=== PATIENT | female | born 1965 | race Caucasian/White ===

== ENCOUNTER 2018-01-01 16:35 | Emergency (ER) | payer OTHER, SELFPAY ==
[2018-01-01] VITALS (7 sets, daily range): BP systolic 122–153; BP diastolic 52–101; PULSE 79–87; RESP 17–25; TEMP 36.6; O2SAT 96–100; BMI 36.8
--- NOTE | 2018-01-01 16:39 | NURSING ---
NO OLD EKGS
--- NOTE | 2018-01-01 16:43 | NURSING ---
NO LW OR POA
[2018-01-01 16:45] LABS: Bedside Glucose 89 mg/dL (70-110)
--- NOTE | 2018-01-01 17:00 | CT_ITS ---
CTA of the neck INDICATION: Facial drooping TECHNIQUE: CTA of the neck was performed scanning in a dynamically enhanced fashion in the axial plane from the base of skull through the pulmonary apices followed by sagittal and coronal reconstructions. Radiographic technique was optimized to limit patient radiation dose FINDINGS: There is no significant soft or calcific plaque within the common carotids, carotid bulbs or origin of internal carotids. The right vertebral is dominant. Left vertebral is hypoplastic terminating in a PICA which is normal developmental variant. CT/CTA Neck W/WO Contrast IMPRESSION: No significant atherosclerotic disease. Electronically Signed: Marin Arechiga MD at 19:14 EDT , Service support ,
--- NOTE | 2018-01-01 17:00 | CT_ITS ---
STUDY: CTA OF THE BRAIN REASON FOR EXAM: Female, 52 years old. Left facial numbness RADIATION DOSAGE (If Supplied By Facility): CTDIvol = ( 26.63 ) mGy, DLP = ( 1469.83 ) mGycm TECHNIQUE: CT angiography was performed with a multi-detector CT scanner. Data acquisition was obtained from the skull base through the vertex following intravenous administration of ml of . MIP images were reconstructed from the axial data set. Post-processing of the angiographic images was performed, with multiplanar reformation and 3D reconstruction. Individualized dose optimization techniques were used for this CT. COMPARISON: None. FINDINGS: Normal bilateral petrous carotid arteries. Normal right cavernous carotid artery with a normal supraclinoid bifurcation. Normal left cavernous carotid artery with a normal supraclinoid bifurcation. Normal right A1 segments of the anterior cerebral artery. Normal left A1 segments of the anterior cerebral artery. Anterior communicating artery not visualized consistent with normal variant Normal bilateral A2 segments of the anterior cerebral arteries. Normal right M1 and M2 segments of the middle cerebral arteries, with a normal M1 bifurcation. Normal left M1 and M2 segments of the middle cerebral arteries, with a normal M1 bifurcation. Posterior communicating arteries are not visualized consistent with normal developmental variant Normal bilateral vertebral arteries. Normal basilar artery with a normal basilar bifurcation. The visualized bilateral superior cerebellar (SCA) arteries are normal. Normal bilateral P1, P2 and visualized P3 segments of the posterior cerebral arteries. There is no demonstrated aneurysm of the [place] of [place]. There is no demonstrated abnormality of the visualized brain. CT/CTA Head W/WO Contrast IMPRESSION: Normal [place] of [place] without a demonstrated aneurysm or hemodynamically significant stenosis. Electronically Signed: Marin Arechiga MD at 19:16 EDT , Service support ,
--- NOTE | 2018-01-01 17:01 | EKG12_ITS ---
Test Reason : NEURO Blood Pressure : / mmHG Vent. Rate : 081 BPM Atrial Rate : 081 BPM P-R Int : 156 ms QRS Dur : 080 ms QT Int : 396 ms P-R-T Axes : 038 052 037 degrees QTc Int : 460 ms Sinus rhythm with occasional Premature ventricular complexes Otherwise normal ECG Confirmed by EDGAR HUGGINS, WARREN ([id number]), video editor BRIJESH MAKI ([id number]) on 01/04/2018 12:45:41 PM Referred By: ROSSI/SHAWN Confirmed By:WARREN HERNÁNDEZ MD
--- NOTE | 2018-01-01 17:04 | MRI_ITS ---
STUDY: MRI BRAIN WITHOUT CONTRAST REASON FOR EXAM: Female, 52 years old. Left facial droop and numbness TECHNIQUE: Standardized multiplanar fat and water weighted pulse sequences were obtained. COMPARISON: None. FINDINGS: Normal size of the ventricles and extra-axial spaces for the patient's age. Normal white matter tracts of the supratentorial brain. Normal bilateral basal ganglia. Normal thalami. There is no extra-axial fluid accumulation. Normal flow voids within the major intracranial circulation suggesting patency by spin echo criteria. Normal sella turcica, pituitary gland, infundibular stalk, optic chiasm and hypothalamus. Normal tectal plate and pineal gland. Normal midbrain, deonte and medulla. Normal cerebellum. Normal basal cisterns. Normal bilateral temporal bones. Normal bilateral internal auditory canals. No demonstrated orbital abnormality, within the constraints of a routine brain study. Mild mucosal thickening in the maxillary and ethmoid air cells bilaterally.. Normal calvarium and skull base. Normal visualized soft tissue structures. Normal visualized upper cervical spine. MRI/Brain without Contrast IMPRESSION: Normal unenhanced MRI of the brain. Mild mucosal thickening in the maxillary and ethmoid sinuses Electronically Signed: Marin Arechiga MD at 19:09 EDT , Service support ,
[2018-01-01] MEDS: 0.9% Normal Saline 1,000 ML 100 ML IV (17:16)
[2018-01-01 17:35] LABS: Anion Gap 6 (5-15); BUN 17 mg/dL (7-18); Chloride 103 mmol/L (98-107); EST Glomerular Filtration Rate 70 mL/min (>60); Est Glom Filt Rate - Afr Amer 85 mL/min (>60); Estimated Creatinine Clearance 63.86 ml/min; Glucose 100 mg/dL (74-106); Potassium 3.5 mmol/L (3.5-5.1); Sodium Level 138 mmol/L (136-145)
[2018-01-01 18:02] LABS: Absolute Lymphocyte Count 2.57 X10^3/ul (0.83-4.51); Absolute Neutrophil Count 4.3 X10^3/uL (2.0-7.7); Basophil# 0.02 X10^3/uL; Basophil% 0.2 % (0-1); Eosinophil# 0.45 X10^3/uL; Eosinophils% 5.6 % (0-5); Hematocrit 43.7 % (37-47); Hemoglobin 14.4 g/dl (12.0-15.0); Lymphocyte # 2.57 X10^3/ul (4.0); Mean Corpuscular Hgb 28.5 pg (27.0-32.0); Mean Corpuscular Volume 86.5 fL (81-99); Mean Platelet Vol. 9.8 fl (6.2-12.0); Monocyte# 0.64 X10^3/uL; Neutrophil # 4.33 X10^3/uL (2.7-7.7); Neutrophil % 54.1 % (47-70); POSITIVE COUNT NO; POSITIVE DIFFERENTIAL NO; POSITIVE MORPHOLOGY NO; Partial Thromboplast Time 30.9 Seconds (24.1-36.2); Platelet Count 341 K/mm3 (150-450); Prothrombin Time (Protime)PT. 13.1 SECONDS (11.7-14.9); RBC Distribution Width CV 13.7 % (11.6-14.6); Red Blood Count 5.05 M/mm3 (4.2-5.4)
--- NOTE | 2018-01-01 18:46 | NURSING ---
pt was down in MRI was unable to assess NIH for a period of time.
--- NOTE | 2018-01-01 19:38 | ED.VISSUMM ---
- ER Visit Summary Date of Service: 01/01/18 Chief Complaint: Facial paresthesias History of Present Illness: The patient is a [address] Tolbert. She reports that at 410 this afternoon she notes paresthesias to the left V3 area of her face. States that these have now become perioral paresthesias. Also reports that she noticed a left facial droop. She denies any other symptoms. No numbness or weakness in her arms or legs. No slurred speech or aphasia. No change in her vision. No vertigo. She denies any neck or chest pain. Physical Examination: Vitals: Stable. Afebrile. Neurological: Cranial nerves II through XII are intact except for decreased sensation to light touch in a V3 distribution bilaterally. I do not appreciate a facial droop. She is able to wrinkle her forehead bilaterally. 5 out of 5 strength throughout. Normal sensation to light touch throughout. Normal [id number]-[id number]-elgdsg and asuu-rspt-wsob bilaterally. Normal gait. General: A&O x 3. NAD. Cardiovascular exam: Regular rate and rhythm, no murmur, rub or gallop. Respiratory exam: Clear to auscultation bilaterally. No wheezes or stridor. Abdominal exam: Soft, nontender, nondistended, normal bowel sounds. No peritoneal signs. Extremity: No clubbing, cyanosis, or edema. Test Results: CTA head shows normal aug[place] of [place]. CTA neck shows no significant atherosclerotic disease. MRI brain is normal. Mild mucosal thickening in the maxillary and ethmoid sinuses. EKG is sinus at 81 with a single PVC. Troponin is negative. Coags are normal. Chem-7 is normal. CBC is marked for eosinophils of 6. Emergency Department Course and Treatment: Patient is resting comfortably. The patient's NIH scale is 0. She is not a TPA candidate. Treatment Plan: Patient was discussed with Dr. Burleson. The location of her symptoms and the bilateral nature this is not a TIA or stroke. She will be discharged instructions to follow-up with her primary care physician 1 day for repeat exam. Return to the emergency department for any worsening symptoms. Disposition: To home in improved and stable condition. Impression: 1. Facial paresthesias. This note was generated with [employer] dictation software. It may contain incorrect words, spelling, and punctuation that were not noted in review of the chart prior to signing ED Disposition - Plan for ED Patient: Disposition: Home or Assisted Living Chief Complaint: Neuro S/Sx Instructions: ED Paraesthesias Referrals: Russell Tolbert [Primary Care Provider] - 1 Day for another exam
== END 2018-01-01 19:52 | disposition home or self-care (01) ==
PROVIDERS: Emergency Provider Emergency Medicine; Family Provider Family Medicine; PCP Family Medicine
DX: R20.2 Paresthesia of skin (principal); Z79.899 Other long term (current) drug therapy
CPT/HCPCS: 70496; 70498; 70551; 80048; 82962; 84484; 85025; 85610; 85730; 93005; 96360; 96361; 99284; J7030; Q9967